=== PATIENT | female | born 1950 | race Caucasian/White ===

== ENCOUNTER 2020-06-15 11:46 | Outpatient (CLI) | payer MEDICARE, SELFPAY ==
--- NOTE | ~2020-06-15 | MM_ITS ---
EXAMINATION: MM screening isidro BI w bobby HISTORY: Screening TECHNIQUE: Craniocaudal and mediolateral oblique 3-D tomosynthesis images were obtained and synthetic 2-D images were generated. CAD analysis was submitted and interpreted. COMPARISON: Comparison to multiple prior studies sequentially, with oldest reviewed study dated 12/2012. BREAST PARENCHYMAL COMPOSITION: There are scattered areas of fibroglandular density. FINDINGS: There is no evidence of suspicious mass, calcification, or architectural distortion to sugg est malignancy in either breast. There has been no suspicious interval change. IMPRESSION: 1. No mammographic evidence of malignancy. 2. Recommend routine screening mammography in one year. BI-RADS Category 1: Negative Reviewed, dictated and finalized at location D.
== END 2020-06-15 11:47 | disposition home or self-care (01) ==
PROVIDERS: PCP Internal Medicine; Visit Provider Internal Medicine
DX: Z12.31 Encounter for screening mammogram for malignant neoplasm of breast (principal)
CPT/HCPCS: 77063; 77067

== ENCOUNTER 2020-09-27 07:35 | Outpatient (CLI) | payer MEDICARE, SELFPAY ==
--- NOTE | ~2020-09-27 | DEXA_ITS ---
Bone Density Report Name: Di Perdomo Age: 69 Sex: Female Ethnicity: White Date of : 1950 Indication: postmenopausal; height loss; Referring Provider: JOHN, NADIYA Cunningham Study: Bone densitometry was performed. Exam Date: September 27, 2020 Accession number: [id number] Bone Density: Region BMD T-score Z-score Classification AP Spine (L1-L4) 1.088 0.4 2.5 Normal Femoral Neck (Left) 0.977 1.2 3.0 Normal Total Hip (Left) 1.131 1.6 3.1 Normal Total Hip Bilateral Avg 1.117 1.5 3.0 Normal Femoral Neck (Right) 0.905 0.5 2.3 Normal Total Hip (Right) 1.101 1.3 2.9 Normal World Health Organization criteria for BMD impression classify patients as: Normal (T-score at or above -1.0), Osteopenia (T-score between -1.0 and -2.5), or Osteoporosis (T-score at or below -2.5). 10-year Fracture Risk: FRAX not reported because: All T-scores for Spine Total, Hip Total, Femoral Neck at or above -1.0 Previous Exams: Region Exam Age BMD T-score BMD Change BMD Change Date g/cm2 vs Baseline vs Previous AP Spine(L1-L4) 09/27/2020 69 1.088 0.4 0.006(0.5%)# 0.006(0.5%)# 05/05/2010 59 1.082 0.3 Total Hip(Left) 09/27/2020 69 1.131 1.6 -0.086(-7.1%)# -0.086(-7.1%)# 05/05/2010 59 1.218 2.3 Total Hip(Right) 09/27/2020 69 1.101 1.3 -0.078(-6.6%)# -0.078(-6.6%)# 05/05/2010 59 1.179 1.9 *Denotes significance at 95% confidence level, LSC for AP Spine = 0.022 g/cm2, LSC for Total Hip = 0.027 g/cm2 Clinical Information Provided by Patient: Patient maximum height was 65 Menopause Age: 38 No regular weight bearing exercise Does not regularly consume dairy products Onset of menses at age 12 Number of children 3 Impression: The patient has normal bone mass. No significant bone loss was observed. Discussion: LOW RISK OF FRACTURE; BONE DENSITY IS WELL ABOVE THE MINIMUM DESIRABLE LEVEL AND ABOVE AVERAGE FOR AGE AND SEX AT ALL SKELETAL SITES TESTED. This person's bone density is above expected limits for age and sex. This is rarely clinically significant, but should be pursued if there are significant musculoskeletal complaints. The patient should follow a healthful lifestyle (good nutrition with adequate calcium and vitamin D, and appropriate weight-bearing exercise). Follow-Up: Consider repeating this study in 5 years or sooner if there is some new clinical indication. Reported by: MORGAN on 09/27/2020 8:00:00 AM.
== END 2020-09-27 07:36 | disposition home or self-care (01) ==
PROVIDERS: PCP Internal Medicine; Visit Provider Internal Medicine
DX: Z13.820 Encounter for screening for osteoporosis (principal); Z78.0 Asymptomatic menopausal state
CPT/HCPCS: 77080

== ENCOUNTER 2021-06-19 10:07 | Outpatient (CLI) | payer MEDICARE, SELFPAY ==
--- NOTE | ~2021-06-19 | MM_ITS ---
EXAMINATION: MM screening isidro BI w bobby HISTORY: Screening TECHNIQUE: Craniocaudal and mediolateral oblique 3-D tomosynthesis images were obtained and synthetic 2-D images were generated. CAD analysis was submitted and interpreted. COMPARISON: No prior mammogram is available for comparison at this institution. BREAST PARENCHYMAL COMPOSITION: There are scattered areas of fibroglandular density. FINDINGS: There is no evidence of suspicious mass, calcification, or architectural distortion to sugg est malignancy in either breast. There has been no suspicious interval change. IMPRESSION: 1. No mammographic evidence of malignancy. 2. Recommend routine screening mammography in one year. BI-RADS Category 1: Negative Reviewed, dictated and finalized at location A.
== END 2021-06-19 10:08 | disposition home or self-care (01) ==
PROVIDERS: PCP Internal Medicine; Visit Provider Internal Medicine
DX: Z12.31 Encounter for screening mammogram for malignant neoplasm of breast (principal)
CPT/HCPCS: 77063; 77067

== ENCOUNTER 2023-08-07 08:25 | Outpatient (CLI) | payer MEDICARE, SELFPAY ==
--- NOTE | ~2023-08-07 | MM_ITS ---
EXAMINATION: MM screening isidro BI w bobby HISTORY: Screening mammogram TECHNIQUE: Craniocaudal and mediolateral oblique 3-D tomosynthesis images were obtained and synthetic 2-D images were generated. CAD analysis was submitted and interpreted. COMPARISON: 06/19/2021, 06/15/2020, 06/05/2019 bilateral screening mammogram examinations BREAST PARENCHYMAL COMPOSITION: There are scattered areas of fibroglandular density. FINDINGS: There is no evidence of suspicious mass, calcification, or architectural distortion to sugg est malignancy in either breast. There has been no suspicious interval change. IMPRESSION: 1. No mammographic evidence of malignancy. 2. Recommend routine screening mammography in one year. BI-RADS Category 1: Negative Reviewed, dictated and finalized at location A.
== END 2023-08-07 08:26 | disposition home or self-care (01) ==
LOC: ANHIMG 08:28
PROVIDERS: PCP Internal Medicine; Visit Provider Internal Medicine
DX: Z12.31 Encounter for screening mammogram for malignant neoplasm of breast (principal)
CPT/HCPCS: 77063; 77067

== ENCOUNTER 2024-08-19 10:18 | Outpatient (CLI) | payer MEDICARE, SELFPAY ==
--- NOTE | ~2024-08-19 | MM_ITS ---
EXAMINATION: MM screening isidro BI w bobby HISTORY: Screening TECHNIQUE: Craniocaudal and mediolateral oblique 3-D tomosynthesis images were obtained and synthetic 2-D images were generated. CAD analysis was submitted and interpreted. COMPARISON: Comparison to multiple prior studies sequentially, with oldest reviewed study dated 04/23. BREAST PARENCHYMAL COMPOSITION: Not dense: There are scattered areas of fibroglandular density. FINDINGS: There is no evidence of suspicious mass, calcification, or architectural distortion to sugg est malignancy in either breast. There has been no suspicious interval change. IMPRESSION: 1. No mammographic evidence of malignancy. 2. Recommend routine screening mammography in one year. BI-RADS Category 1: Negative Reviewed, dictated and finalized at location B.
--- NOTE | ~2024-08-19 | DEXA_ITS ---
Bone Density Report Name: ABHAY JOHN Age: 73 Sex: Female Ethnicity: White Date of : 1950 Indication: postmenopausal; screening for osteoporosis; parental hip fracture; Referring Provider: NIEVES*, NADIYA Cunningham Study: Bone densitometry was performed. Exam Date: August 19, 2024 Accession number: [id number] Bone Density: Region BMD T-score Z-score Classification AP Spine(L1-L4) 1.082 0.3 2.7 Normal Femoral Neck (Left) 0.891 0.4 2.4 Normal Total Hip (Left) 1.104 1.3 3.1 Normal Femoral Neck (Right) 0.873 0.2 2.3 Normal Total Hip (Right) 1.072 1.1 2.8 Normal Total Hip Mean 1.088 1.2 3.0 Normal World Health Organization criteria for BMD impression classify patients as: Normal (T-score at or above -1.0), Osteopenia (T-score between -1.0 and -2.5), or Osteoporosis (T-score at or below -2.5). 10-year Fracture Risk: FRAX not reported because: All T-scores for Spine Total, Hip Total, Femoral Neck at or above -1.0 Previous Exams: Region Exam Age BMD T-score BMD Change BMD Change Date g/cm2 vs Baseline vs Previous AP Spine (L1-L4) 08/19/2024 73 1.082 0.3 -0.005 (-0.5%) -0.005 (-0.5%) 09/27/2020 69 1.088 0.4 Total Hip(Left) 08/19/2024 73 1.104 1.3 -0.027 (-2.4%) -0.027 (-2.4%) 09/27/2020 69 1.131 1.6 Total Hip(Right) 08/19/2024 73 1.072 1.1 -0.029 (-2.6%) -0.029 (-2.6%) 09/27/2020 69 1.101 1.3 *Denotes significance at 95% confidence level, LSC for AP Spine = 0.022 g/cm2, LSC for Total Hip = 0.027 g/cm2 # Denotes dissimilar scan types or analysis methods Clinical Information Provided by Patient: Parent has had a hip fracture Patient maximum height was 63.0 Menopause Age: 38 No regular weight bearing exercise Does not regularly consume dairy products Drinks caffeinated beverages Onset of menses at age 13 Number of children 3 Impression: The patient has normal bone mass. The patient has risk factors, including: parental hip fracture. No significant bone loss was observed. Discussion: LOW RISK OF FRACTURE; BONE DENSITY IS WELL ABOVE THE MINIMUM DESIRABLE LEVEL AND ABOVE AVERAGE FOR AGE AND SEX AT ALL SKELETAL SITES TESTED. This person's bone density is above expected limits for age and sex. This is rarely clinically significant, but should be pursued if there are significant musculoskeletal complaints. The patient should follow a healthful lifestyle (good nutrition with adequate calcium and vitamin
== END 2024-08-19 10:19 | disposition home or self-care (01) ==
PROVIDERS: PCP Internal Medicine; Visit Provider Internal Medicine
DX: Z12.31 Encounter for screening mammogram for malignant neoplasm of breast (principal); M81.0 Age-related osteoporosis without current pathological fracture; Z13.820 Encounter for screening for osteoporosis
CPT/HCPCS: 77063; 77067; 77080

== ENCOUNTER 2025-05-26 08:18 | Outpatient (CLI) | payer MEDICARE, SELFPAY ==
--- NOTE | ~2025-05-26 | US_ITS ---
US renal BI 05/26/2025 09:54 Procedure: Realtime transabdominal ultrasound of the kidneys and bladder. Indication: Chronic kidney disease Comparison: No prior studies for comparison. Findings: There is a right renal cyst laterally measuring 5.4 cm. There is mild left renal caliectasi s. There is increased cortical echotexture consistent with chronic renal disease. The right kidney me asures 9.5 cm and left kidney measures 9 cm. Bladder within normal limits. Impression: 1: Mild left renal caliectasis. 2: Right renal cyst measuring 5.4 cm Reviewed, dictated and finalized at location B. Impression: 1: Mild left renal caliectasis. 2: Right renal cyst measuring 5.4 cm
--- OUTSIDE RECORDS SUMMARY | 2025-05-26 08:22 | XMS_ITS | Data Portability ---
Author Organization [facility], Main Office Address [address] [place] [address] Assessment No assessment recorded. Plan of Treatment Reminders Order Date Submit Date Provider Last Modified By Organization Details Last Modified Time Details Appointments None recorded. Lab uric acid, serum or plasma 2024 025 [email or web address] [facility], [address], [place], [address], 5 10:24:30 lipid panel, serum 2024 025 [email or web address] [facility], [address], [place], [address], 5 10:24:29 CMP, serum or plasma 2024 025 [email or web address] [facility], [address], [place], [address], 5 10:24:29 TSH, ultra-sens itive, serum 2024 025 [email or web address] [facility], [address], [place], [address], 5 10:24:29 unlisted lab - T4, free 2024 025 [email or web address] [facility], [address], [place], [address], 5 10:24:29 HbA1c (hemoglobi n A1c), blood 2024 025 [facility], [address], [place], [address], 5 10:24:29 microalbum in, urine 2024 025 [email or web address] [facility], [address], [place], [address], 5 10:24:30 CBC w/ auto diff 2024 025 [email or web address] [facility], [address], [place], [address], 5 10:24:28 uric acid, serum or plasma 2023 024 [email or web address] [facility], [address], [place], [address], 4 16:56:27 lipid panel, serum 2023 024 [email or web address] [facility], [address], [place], [address], 4 16:56:26 CMP, serum or plasma 2023 024 [email or web address] [facility], [address], [place], [address], 4 16:56:26 TSH, ultra-sens itive, serum 2023 024 [email or web address] [facility], [address], [place], [address], 4 16:56:26 unlisted lab - T4, free 2023 024 [email or web address] [facility], [address], [place], [address], 4 16:56:26 HbA1c (hemoglobi n A1c), blood 2023 024 [email or web address] [facility], [address], [place], [address], 4 16:56:26 microalbum in, urine 2023 024 [facility], [address], [place], [address], 4 16:56:26 CBC w/ auto diff 2023 024 [email or web address] [facility], [address], [place], [address], 4 16:56:25 uric acid, serum or plasma 2023 024 [email or web address] [facility], [address], [place], [address], 4 12:54:52 lipid panel, serum 2023 024 [email or web address] [facility], [address], [place], [address], 4 12:54:52 CMP, serum or plasma 2023 024 [email or web address] [facility], [address], [place], [address], 4 12:54:52 TSH, ultra-sens itive, serum 2023 024 [email or web address] [facility], [address], [place], [address], 4 12:54:52 unlisted lab - T4, free 2023 024 [email or web address] [facility], [address], [place], [address], 4 12:54:52 HbA1c (hemoglobi n A1c), blood 2023 024 [email or web address] [facility], [address], [place], [address], 4 12:54:52 CBC w/ auto diff 2023 024 [email or web address] [facility], [address], [place], [address], 4 12:54:51 HbA1c (hemoglobi n A1c), blood 2022 023 [facility], [address], [place], [address], 3 16:33:54 microalbum in/creatin ine, mass ratio, urine 2022 023 [email or web address] [facility], [address], [place], [address], 3 16:33:55 lipid panel, serum 2022 023 [email or web address] [facility], [address], [place], [address], 3 16:33:54 CMP, serum or plasma 2022 023 [email or web address] [facility], [address], [place], [address], 3 16:33:54 CBC w/ auto diff 2022 023 [facility], [address], [place], [address], 3 16:33:54 unlisted lab - T4, free 2022 023 [email or web address] [facility], [address], [place], [address], 16:33:54 TSH, ultra-sens itive, serum 2022 023 [facility], [address], [place], [address], 16:33:54 Referral None recorded. Procedures None recorded. Surgeries None recorded. Imaging None recorded. Medication Orders None recorded. Patient TargetsNo targets recorded. Patient Instructions Encounter Date Encounter Id Patient Instructions Last Modified By Organization Details Last Modified Time 02/06/2023 [id number] Follow-up hypertension -hyperlipidemia- type 2 diabetes-obesity. Clinically stable in no acute distress at this time. Doing quite well. Needs have blood work performed in the form of CBC, CMP, lipid, thyroid, hemoglobin A1c and albumin. Will check on the most recent mammogram. Is also due for bone density scan is up-to-date on colonoscopy. Is up-to-date on immunizations. Will continue on current Rx recheck back in six months [email or web address] Not available 02/06/2023 15:45:18 07/31/2023 [id number] Follow-up hypertension -hyperlipidemia- type 2 diabetes doing well. No need for any further testing at this time. Recent hemoglobin A1c was 7.3. Recent cholesterol panel showed cholesterol 153 HDL of 41 LDL of 77. Will continue on current medications recheck back in six months. Portions of the record may have been created with voice recognition software. Occasional wrong-word or [id number]-f-[id number] substitutions may have occurred due to the inherent limitations of voice recognition software. Read the chart carefully and recognize, using context, where substitutions have occurred. Next Appt: 6 Months Approximate Date: 01/27/2024 [email or web address] Not available 07/31/2023 15:03:21 01/29/2024 [id number] HTN, Cholesterol , DM, Gout obesity class I. Stable. Check blood work and follow up in six months. Needs a bone density scan. DEXA scan at [facility] Next Appt: 4 Months Approximate Date: 05/28/2024 Portions of the record may have been created with voice recognition software. Occasional wrong-word or kjdfv-v-ilcx substitutions may have occurred due to the inherent limitations of voice recognition software. Read the chart carefully and recognize, using context, where substitutions have occurred. [email or web address] Not available 01/29/2024 14:53:22 08/12/2024 [id number] Follow-up for hypertension, hyperlipidemia, type 2 diabetes gout and obesity class one. All clinically stable. Check blood work consisting of CBC, CMP, lipid, thyroid, hemoglobin A1c, microalbumin and uric acid. Continue on current Rx follow-up in six months. Follow Up: 6 Months Approximate Date: 02/08/2025 Portions of the record may have been created with voice recognition software. Occasional wrong-word or xupia-d-wrvs substitutions may have occurred due to the inherent limitations of voice recognition software. Read the chart carefully and recognize, using context, where substitutions have occurred. [email or web address] Not available 08/12/2024 14:55:10 02/10/2025 [id number] Follow-up hypertension, hyperlipidemia, type 2 diabetes, gout and obesity class one. Clinically stable. Check blood work consisting of CBC, CMP, lipid, thyroid, hemoglobin A1c and microalbumin. Will set up with Ophthalmology for possible evaluation for early cataract. Additional Orders - Directives - Recommendations 1. Ophthalmology consult for decrease in visual acuity possible early cataracts and history of diabetes Follow Up: 6 Months Approximate Date: 08/09/2025 Portions of record are template driven. When necessary additional context will be provided. Additionally some portions have been created with voice recognition software. Occasional wrong-word or iokoe-n-gjwf substitutions may have occurred due to the inherent limitations of voice recognition software. Read the chart carefully and recognize, using context, where substitutions may have occurred. Created: Hal Beal M.D. 02.10.2025 02:08 PM Not available 02/10/2025 15:08:15 Reason for Referral None Reported. Results Created Date Observation Date Name Description Value Unit Range Abnormal Flag Note LastModifiedBy Organization Detail LastModifiedTime 02/04/20 24 02/04/2024 COLOG UARD cologuard result reportable NEGATI VE negati ve normal NEGAT MIGUEL TEST RESUL T. A negat miguel Colog uard resul t indic ates a low likel ihood that a color ectal cance r (CRC) or advan angie adeno ma (rupinder omato us polyp s with more advan angie pre-m align ant featu res) is prese nt. The [facility] that a perso n with a negat miguel Colog uard test has a color ectal cance r is less than 1 in 1500 (nega tive predi ctive value >99.9 %) or has an advan angie adeno ma is less than 5.3% (nega tive predi ctive value 94.7% ). These data are based on a prosp ectiv e cross -sect ional study of ,00 0 indiv idual s at [place] [facility] risk for color ectal cance r who were scree rolando with both Colog uard and colon oscop y. (Peter Cunningham et al, N Engl J Med 2014; 370(1 4):12 86-12 97) The olive l value (refe rence range ) for this assay is negat miguel. COLOG UARD RE-SC REEJUSTYNA ANDREA RECOM MENDA TION: Perio dic color ectal cance r scree teresa is an impor tant part of preve ntive healt hcare for asymp tomat ic indiv idual s at [place] risk for color ectal cance r. Follo wing a negat miguel Colog uard resul t, the Ameri can Cance r Socie ty and U.S. Multi -Soci ety Task Force scree teresa guide lines recom mend a Colog uard re-sc brook andrea inter olayinka of 3 years . Refer ences : Ameri can Cance r Socie ty Guide line for Color ectal Cance r Scree teresa: https ://ww w.can cer.o rg/ca ncer/ colon -rect al-ca ncer/ detec tion- diagn osis- stagi ng/ac s-rec ommen datio ns.ht ml.; Dwayne RANDOLPH, Dena CALL, Huang AshK, Color ectal Cance r Scree teresa: Recom menda tions for Physi cians and Patie nts from the U.S. Multi -Soci ety Task Force on Color ectal Cance r Scree teresa , Am J Zaheer pereznte rolog y 2017; 112:1 016-1 030. TEST DESCR IPTIO N: [place] site algor ithmi c ana sis of stool DNA-b arun renee with hemog lobin immun oassa y. Quant itati ve value s of indiv idual bioma rkers are not repor table and are not assoc iated with indiv idual bioma rker resul t refer ence range s. Colog uard is inten ded for color ectal cance r scree teresa of adult s of eithe r sex, 45 years or older , who are at [facility] for color ectal cance r (CRC) . Colog uard has been appro huan for use by the U.S. FDA. The perfo rmanc e of Colog uard was estab lishe d in a cross secti onal study of [facility] adult s aged 50-84 . Colog uard perfo rmanc e in patie nts ages 45 to 49 years was estim ated by sub-g roup ana sis of near- age group s. Colon oscop ies perfo rmed for a posit miguel resul t may find as the most clini kalie signi kelsi guidry leskevin n: color ectal cance r [4.0% ], advan angie adeno ma (incl uding sessi le el margo polyp s great er than or equal to 1cm diame ter) [20%] or non- advan angie adeno ma [31%] ; or no color ectal neopl jamie [45%] . These estim ates are deriv ed from a prosp ectiv e cross -sect ional scree teresa study of 10,00 0 indiv idual s at [facility] risk for color ectal cance r who were scree rolando with both Colog uard and colon oscop y. (Peter Herbert al, N Engl J Med 2014; 370(1 4):12 86-12 97.) Colog uard may produ ce a false negat miguel or false posit miguel resul t (no color ectal cance r or preca ncero us polyp prese nt at colon oscop y follo w up). A negat miguel Colog uard test resul t does not guara ntee the absen ce of CRC or advan angie adeno ma (pre- cance r). The curre nt Colog uard scree teresa inter olayinka is every 3 years . (Amer ican Cance r Socie ty and U.S. Multi -Soci ety Task Force ). Colog uard perfo rmanc e data in a ,00 0 patie nt pivot al study using colon oscop y as the refer ence metho d can be acces sed at the follo wing locat ion: www.e xactl abs.c om/re sults . Addit ional descr iptio n of the Colog uard test proce ss, warni ngs and preca ution s can be found at www.c ologu umberto.c om. Not Available [facility] (Cologuard Orders Only) [address], [place], [address], 02/07/2024 19:26:17 08/07/20 23 08/07/2023 MAMMO , scree teresa, bilat eral No observ ation record ed. [address], [address], 08/07/2023 10:56:10 08/19/2008/19/2024 MAMMO , scree teresa, bilat eral No observ ation record ed. [address] [address], [place], [address], 08/19/2024 13:50:37 08/20/2008/19/2024 DEXA No observ ation record ed. [id number] Not Available 2023 07:00:10 08/21/2008/19/2024 bone densi ty No observ ation record ed. [address] [address], [place], [address], 08/22/2024 08:45:30 09/03/2008/19/2024 DEXA No observ ation record ed. [email or web address] Not Available 2023 14:13:18 Result Notes None recorded. Problems Name Problem SNOMED Code Status Onset Date Resolution Date Notes Provider Name and Address Organization Details Recorded Time Renewal of prescripti on Active 2021 Not Available [facility] 3 12:40:06 Neurosis 872910239 Active Not Available [facility] 3 12:40:06 Benign essential hypertensi on 9288539 Completed Not Available [facility] 3 05:59:04 Gastroesop hageal reflux disease 505954533 Active Not Available [facility] 3 12:40:06 Thoracic herpes zoster infection 900854784 Active 2016 Not Available [facility] 3 12:40:06 Pure hyperchole sterolemia 592078011 Active Not Available [facility] 3 12:40:06 Tachycardi a 6215092 Active Not Available [facility] 3 12:40:06 Vitamin D deficiency 54042455 Active 2021 Not Available [facility] 3 12:40:06 Depressive disorder 79412637 Active Not Available [facility] 3 12:40:06 Vertigo 228947772 Active Not Available [facility] 3 12:40:06 Type 2 diabetes mellitus 16643175 Active Not Available [facility] 3 12:40:06 Essential hypertensi on 40379903 Active 2017 Not Available [facility] 3 12:40:06 Palpitatio ns 82983985 Active Not Available [facility] 3 12:40:07 COVID-19 511381379 Active 2021 Not Available [facility] 3 12:40:07 Obesity 221058873 Active 2022 Not Available [facility] 3 12:40:06 Type 2 diabetes mellitus without complicati on 225312494 Active 2022 Not Available [facility] 3 12:40:06 Hyperlipid emia 17827138 Active 2022 Xiao Castle CMA null, [place] [facility] 3 15:40:19 Gout 63090640 Active 2023 Hal Beal MD [address] [facility], [address] [address], [place], [address] , [place] [facility] 4 14:48:02 Senile osteoporos is 06241583 Active 2023 Connie Greene null, [place] [facility] 4 15:21:34 Anxiety 33104373 Active 2023 Xiao Castle CMA null, [place] [facility] 4 15:50:26 Bilateral cataracts 59176330 Active 2024 Connie Greene null, [place] [facility] 5 12:22:19 Chronic renal failure 71951824 Active 2024 Xiao Castle CMA null, [place] [facility] 5 15:46:13 Chronic kidney disease stage 3 336210291 Active 2024 Xiao Castle CMA null, [place] [facility] 5 15:58:31 Problem Notes None recorded. Procedures Surgical History Date Name Laterality Status Provider Name and Address Organization Details Recorded Time 07/31/20 21 Date of Last Pap Smear completed Not Available [facility] 01/09/2023 05:54:10 09/27/20 20 Most Recent Bone Density completed Not Available [facility] 01/09/2023 05:54:11 06/15/20 20 Most Recent Mammogram completed Not Available [facility] 01/09/2023 05:54:11 07/15/20 14 Date of Last Colonoscopy completed Not Available [facility] 01/09/2023 05:54:11 11/11/18 81 section completed Not Available [facility] 01/09/2023 05:54:12 Imaging Results None recorded. Procedure Notes None recorded. Medical Equipment None Reported. Allergies Allergen ID Allergen Name Allergen Category Reaction Reaction Severity Criticality Documentation Date Start Date Code Code System Note Provider Name and Address Organization Details Recorded Time 34502 Product containin g penicilli n (product) medicatio n rash Not available Not available 01/09/2023 45557 8001 SNOMED Not Available [facility] 3 06:04:12 93243 Levaquin medicatio n rash Not available Not available 01/09/2023 75347 2 RxNorm vomit ting Not Available [facility] 3 06:04:12 11246 Keflex medicatio n rash Not available Not available 01/09/2023 99724 7 RxNorm Not Available [facility] 3 06:04:13 55282 hydrochlo rothiazid e medicatio n itching Not available Not available 01/09/2023 5487 RxNorm Not Available [facility] 3 06:04:13 49685 codeine medicatio n nausea Not available Not available 01/09/2023 2670 RxNorm Not Available [facility] 3 06:04:13 71765 Biaxin medicatio n other Not available Not available 01/09/2023 41832 9 RxNorm hallu cinat ions Not Available [facility] 3 06:04:13 73978 Avelox medicatio n rash Not available Not available 01/09/2023 02518 6 RxNorm nause a Not Available [facility] 3 06:04:13 86401 allopurin ol medicatio n itching Not available low 02/17/2024 519 RxNorm Hal Beal MD [address] [facility], [facility], [place], [address] [place] [address] - [facility] [employer] [facility] 4 11:17:57 Medications Name Sig Start Date Stop Date Status Note LastModified by Organization Details LastModified Time atorvastati n 40 mg tablet TAKE 1 TABLET DAILY active Not Available Not Available No t Available metformin 500 mg tablet TAKE ONE TABLET BY MOUTH THREE TIMES DAILY 02/03 completed Not Available Not Available Not Available doxycycline hyclate 100 mg capsule Take 1 capsule twice a day by oral route. active Not Available Not Available No t Available atorvastati n 20 mg tablet Take 1 tablet every day by oral route. 08/18 completed Not Available Not Available Not Available naproxen 375 mg tablet Take 1 tablet twice a day by oral route. active Not Available Not Available No t Available clindamycin HCl 300 mg capsule Take 1 capsule every 6 hours by oral route. 01/28 completed Not Available Not Available Not Available benzonatate 200 mg capsule Take 1 capsule 3 times a day by oral route. 07/01 completed Not Available Not Available Not Available Lotrisone 1 %-0.05 % topical cream Apply by topical route twice daily 12/23 completed Not Available Not Available Not Available lisinopril 20 mg tablet Take 1 tablet twice a day by oral route. 10/13 completed Not Available Not Available Not Available metoprolol succinate ER 100 mg tablet,exte nded release 24 hr TAKE 1 TABLET DAILY 2024 active Not Available Not Available Not Avai lable clindamycin HCl 150 mg capsule TAKE 1 CAPSULE BY MOUTH 4 TIMES DAILY 02/10 completed Not Available Not Available Not Available Ultram 50 mg tablet Take 1 tablet(s) EVERY 6 HOURS by oral route for pain 12/23 completed Not Available Not Available Not Available Nexium 40 mg capsule,del ayed release Take 1 capsule every day by oral route. 2013 active Not Available Not Available Not Avai lable chlorthalid one 25 mg tablet TAKE 1 TABLET DAILY active Not Available Not Available No t Available allopurinol 100 mg tablet take one tablet daily for a week then one tablet twice a day for a week then patient needs to call office for a new prescript ion 02/10 completed Not Available Not Available Not Available triamcinolo ne acetonide 0.1 % topical cream APPLY A THIN LAYER TO THE AFFECTED AREA(S) TOPICALLY TWICE DAILY. active Not Available Not Available No t Available glimepiride 2 mg tablet TAKE 1 TABLET DAILY active Not Available Not Available No t Available alprazolam 0.5 mg tablet TAKE 1 TABLET (0.5 MG) BY ORAL ROUTE 1 HOUR BEFORE PROCEDURE active Not Available Not Available No t Available lancets FREEDOM LITE LANCETS TEST ONCE DAILY 05/21 completed Not Available Not Available Not Available baclofen 10 mg tablet Take 1 tablet 4 times a day by oral route. active Not Available Not Available No t Available benzonatate 100 mg capsule Take 1 capsule 3 times a day by oral route. active Not Available Not Available No t Available metformin 1,000 mg tablet TAKE 1 TABLET BY MOUTH TWICE DAILY 02/21/ 2025 active Not Available Not Available Not Avai lable Valtrex 1 gram tablet Take 1 tablet 3 times a day by oral route. 12/23 completed Not Available Not Available Not Available allopurinol 300 mg tablet Take 1 tablet every day by oral route. active Not Available Not Available No t Available hydrochloro thiazide 25 mg tablet Take 1 tablet every day by oral route. 07/01 completed Not Available Not Available Not Available ergocalcife rol (vitamin D2) 1,250 mcg (50,000 unit) capsule TAKE 1 CAPSULE BY MOUTH ONCE A WEEK active Not Available Not Available No t Available ibuprofen 600 mg tablet TAKE 1 TABLET BY MOUTH EVERY 12 HOURS NEEDED FOR PAIN active Not Available Not Available No t Available methylpredn isolone 4 mg tablets in a dose pack USE DIRECTED PER PKG INSERT 08/08 completed Not Available Not Available Not Available losartan 100 mg tablet TAKE 1 TABLET DAILY active Not Available Not Available No t Available naproxen 500 mg tablet Take 1 tablet twice a day by oral route. active Not Available Not Available No t Available Suprep Bowel Prep Kit 17.5 gram-3.13 gram-1.6 gram oral solution active Not Available Not Available Not Available OneTouch Verio test strips TEST BLOOD SUGARS ONCE DAILY. active Not Available Not Available No t Available lancets 28 gauge one touch reflex lancets to test blood sugars once daily active Not Available Not Available No t Available OneTouch Delica Plus Lancet 33 gauge USE TO TEST BLOOD SUGAR ONCE DAILY active Not Available Not Available No t Available Paxlovid 300 mg (150 mg x 2)-100 mg tablets in a dose pack TAKE DIRECTED ON PACKAGE FOR 5 DAYS 02/06 completed Not Available Not Available Not Available Vitals Date Recorded Body height Body mass index (BMI) Body weight Heart rate Body temperature Oxygen saturation Oxygen saturation in Arterial blood by Pulse oximetry Systolic And Diastolic Provider Name and Address Organization Details Last Updated DateTime 4 161.29 cm 31.6 kg/m2 68903.2 2 g 62 /min 97 [degF] 97 % 97 % 138/80 mm[Hg] Leticia Whelan Singh [facility] 4 14:40:00 Date Recorded Body height Body mass index (BMI) Body weight Body temperature Heart rate Oxygen saturation Oxygen saturation in Arterial blood by Pulse oximetry Systolic And Diastolic Provider Name and Address Organization Details Last Updated DateTime 3 161.29 cm 33.1 kg/m2 10727.5 5 g 96.8 [degF] 60 /min 97 % 97 % 130/80 mm[Hg] Jessica Pan MA [facility] [employer] [facility] 3 15:34:30 Date Recorded Body height Body mass index (BMI) Body weight Heart rate Body temperature Oxygen saturation Oxygen saturation in Arterial blood by Pulse oximetry Systolic And Diastolic Provider Name and Address Organization Details Last Updated DateTime 5 161.29 cm 31.4 kg/m2 88531.6 3 g 66 /min 97 [degF] 97 % 97 % 122/74 mm[Hg] [facility] [employer] [facility] 5 14:35:19 Date Recorded Body height Body mass index (BMI) Body weight Heart rate Body temperature Oxygen saturation Oxygen saturation in Arterial blood by Pulse oximetry Systolic And Diastolic Provider Name and Address Organization Details Last Updated DateTime 3 161.29 cm 33.1 kg/m2 97904.5 5 g 65 /min 97 [degF] 95 % 95 % 124/82 mm[Hg] Leticia [facility] [employer] [facility] 3 14:45:33 Date Recorded Body height Body mass index (BMI) Body weight Heart rate Body temperature Oxygen saturation Oxygen saturation in Arterial blood by Pulse oximetry Systolic And Diastolic Provider Name and Address Organization Details Last Updated DateTime 4 161.29 cm 32.1 kg/m2 23654 g 60 /min 97 [degF] 97 % 97 % 136/90 mm[Hg] ZHANG Berg [facility] [employer] [facility] 4 14:41:39 Social History Question Answer Notes LastModified by Organizat ion Details LastModified Time Tobacco Smoking Status Never Smoker Not Available [facility] 01/09/2023 05:53:48 Do You Have An Advance Directive? No MIGRATION.[id number] Information not available 01/09/2023 Are You Blind Or Do You Have Difficulty Seeing? No MIGRATION.[id number] 9120 Information not available 01/09/2023 What Is Your Level Of Caffeine Consumption? Occasional MIGRATION.[id number] 7373 Information not available 01/09/2023 In The 14 Days Before Symptom Onset, Have You Had Close Contact With A Laboratory-confir med COVID-19 While That Case Was Ill? No MIGRATION.[id number] 1650 Information not available 01/09/2023 In The 14 Days Before Symptom Onset, Have You Had Close Contact With A Person Who Is Under Investigation For COVID-19 While That Person Was Ill? No MIGRATION.[id number] 3074 Information not available 01/09/2023 Are You Deaf Or Do You Have Serious Difficulty Hearing? No MIGRATION.777810 2943 Information not available 01/09/2023 What Type Of Diet Are You Following? REGULAR MIGRATION.635384 0470 Information not available 01/09/2023 Have There Been Any Changes To Your Family Or Social Situation? No MIGRATION.606654 1655 Information not available 01/09/2023 What Is The Fluoride Status Of Your Home? Unknown MIGRATION.683408 1198 Information not available 01/09/2023 Are There Any Guns Present In Your Home? No MIGRATION.156563 2826 Information not available 01/09/2023 Do You Use Insect Repellent Routinely? No MIGRATION.047328 4025 Information not available 01/09/2023 Where [facility] You Live? [facility] MIGRATION.[id number] 1659 Information not available 01/09/2023 Do You Have A Medical Power Of Drug Abuse Worker? No MIGRATION.776449 1527 Information not available 01/09/2023 Do You Have Any Pets? Yes MIGRATION.212168 1367 Information not available 01/09/2023 What Is Your Relationship Status? MIGRATION.894344 6141 Information not available 01/09/2023 Do You Use Your Seat Belt Or Car Seat Routinely? Yes MIGRATION.412024 0376 Information not available 01/09/2023 Do You Have Smoke And Carbon Monoxide Detectors In Your Home? No MIGRATION.932788 5882 Information not available 01/09/2023 Are You Passively Exposed To Smoke? No MIGRATION.377453 0979 Information not available 01/09/2023 Do You Use Sunscreen Routinely? No MIGRATION.747501 4241 Information not available 01/09/2023 Have You Recently Traveled Abroad? No MIGRATION.156178 6486 Information not available 01/09/2023 Do You Have Difficulty Walking Or Climbing Stairs? No MIGRATION.161969 8403 Information not available 01/09/2023 Do You Have Any Dietary Restrictions? No MIGRATION.980378 8984 Information not available 01/09/2023 Sex: Female Functional Status Question Answer Note LastModified by Organizat ion Details LastModified Time Do you use any illicit or recreational drugs? No MIGRATION.461715 4685 Information not available 01/09/2023 What is your level of alcohol consumption? None MIGRATION.557184 3523 Information not available 01/09/2023 Do you have transportation difficulties? No MIGRATION.138275 8375 Information not available 01/09/2023 Are you able to walk? YESWOREST MIGRATION.049548 8072 Information not available 01/09/2023 Do you have difficulty doing errands alone? No MIGRATION.807545 7737 Information not available 01/09/2023 Are you able to care for yourself? 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 No MIGRATION.578140 9740 Information not available 01/09/2023 What is your exercise level? Occasional MIGRATION.032234 4586 Information not available 01/09/2023 Mental Status Question Answer Note LastModified by Organizat ion Details LastModified Time Do you have difficulty concentrating, remembering or making decisions? No MIGRATION.[id number] 6 Information not available 01/09/2023 Family History Nothing Reported Notes:Mother 81 yea rs old HTN and CVA Father 81 years old CA lung 2 Brothers 1 living with CAD and CABG the other from DM, PVD, and CAD 2 Sisters on living with renal cell cancer the other DM and CRF Medical History Condition Response NERVE DISEASE N BLINDNESS N RHEUMATIC FEVER N KIDNEY STONES N BLADDER PROBLEMS N OTHER # 1 N POLIO N LUNG DISEASE/DISORDER N RADIATION / CHEMOTHERAPY N COPD N Other # 2 N BLOOD DISEASES N SURGERY N EAR OR HEARING PROBLEMS N MUMPS N BOWEL PROBLEMS N DEPRESSION (INCLUDING POST ) N STROKE/TIA N ULCERS N BENIGN PROSTATIC HYPERPLASIA N MEASLES N MYOCARDIAL INFARCTION N OBESITY N GERD/NAUSEA Y ANEURYSM N URINARY/BLADDER/KIDNEY PROBLEMS N INPATIENT PSYCH CARE Y CORONARY ARTERY DISEASE (CAD) N ADDICTION CONCERNS N ENDOMETRIOSIS N Impotence N USE OF BLOOD THINNERS N SKIN PROBLEMS N GASTROINTESTINAL DISORDER N PERIPHERAL VASCULAR DISEASE N MUSCLE,JOINT OR BONE PROBLEMS N GASTROINTESTINAL BLEEDING N BLOOD CLOTS N ASTHMA N CATARACTS N ERECTILE DYSFUNCTION N VARICOSITIES N GI PROBLEMS N Low Testosterone N INFERTILITY N AIDS/HIV N LIVER DISEASE N MALE HYPOGONADISM N HYPERTENSION Y Deficiency N ANXIETY DISORDER N BLOOD TRANSFUSION N ANEMIA/BLOOD DISORDER N CHRONIC EAR INFECTIONS N BRONCHITIS N TUBERCULOSIS N GLAUCOMA N FOOT PROBLEM N DIVERTICULITIS N SLEEP APNEA N CHICKENPOX N INFECTIOUS DISEASE N HEART ARRHYTHMIA N PROSTATE N INSOMNIA N HIGH CHOLESTEROL / HYPERLIPIDEMIA Y HYPERTHYROIDISM N EYE PROBLEMS N NEUROLOGICAL PROBLEMS N EDEMA N CHRONIC PAIN SYNDROME N HYPOTHYROIDISM N CAROTID BLOCKAGE N CONSTIPATION N BACK / NECK PROBLEMS N HAVE YOU BEEN HOSPITALIZED OR SEEN IN [facility] IN THE PAST YEAR ? N ATHEROSCLEROSIS N BREAST PROBLEMS N DIALYSIS N ECZEMA N OSTEOPOROSIS N ARTHRITIS N NO SIGNIFICANT PAST MEDICAL HISTORY N APPENDICITIS N DIABETES, TYPE Y BAD TEETH N ENT N HEARTBURN / REFLUX N AUTISM SPECTRUM DISORDER (ASD) N HEPATITIS / LIVER DISEASE N PULMONARY DISEASE N GOUT N SLEEP DISORDER N ALZHEIMER'S DISEASE N Brain Problems N HERPES Y DEMENTIA N HEADACHES/MIGRAINES N SEIZURES/EPILEPSY N VASCULAR DISEASE N PACEMAKER N Blood Disorder N DIZZINESS N HEART DISEASE/HEART PROBLEMS N KIDNEY DISEASE N MULTIPLE SCLEROSIS N CARDIAC ARRHYTHMIA Y CANCER: SPECIFY N ANESTHESIA COMPLICATIONS N ATRIAL FIBRILLATION N Gall Stones N PULMONARY EMBOLISM N AUTOIMMUNE DISEASE N Gynecological History Statement/Question Response Abnormal Pap N Date of Last Mammogram 06/19/2021 Date of Last Colonoscopy 07/15/2014 Most Recent Bone Density 09/27/2020 Date of Last Pap 07/13/2021 Date of Last Pap Smear 07/31/2021 Current Control Method Menopause Most Recent Mammogram 06/15/2020 Obstetrics History GPAL:G 3 P 3 0 0 3 Type Value Full Term 3 Living 3 Total 3 Immunizations Vaccine Type Date Status Note Provider Nam e and Address Organization Details Recorded Time Influenza, split virus, trivalent, preservative 3 completed Not Available [facility] 08/12/2023 12:40:07 SARS-COV-2 (COVID-19) vaccine, UNSPECIFIED 2 completed Not Available [facility] 08/12/2023 12:40:07 COVID-19, mRNA, LNP-S, PF, 100 mcg/0.5mL dose or 50 mcg/0.25mL dose 1 completed Not Available [facility] 08/12/2023 12:40:07 SARS-COV-2 (COVID-19) vaccine, UNSPECIFIED 1 completed Not Available [facility] 08/12/2023 12:40:07 SARS-COV-2 (COVID-19) vaccine, UNSPECIFIED 1 completed Not Available [facility] 08/12/2023 12:40:07 Influenza, split virus, trivalent, preservative 5 completed Not Available [facility] 08/12/2023 12:40:07 Influenza, split virus, trivalent, preservative 4 completed Not Available [facility] 08/12/2023 12:40:07 Influenza, high-dose, quadrivalent, PF 1 completed Not Available [facility] 08/12/2023 12:40:07 Influenza, high-dose, quadrivalent, PF 0 completed Not Available [facility] 08/12/2023 12:40:07 Influenza, high-dose, trivalent, PF 9 completed Not Available [facility] 08/12/2023 12:40:07 Influenza, high-dose, trivalent, PF 8 completed Not Available [facility] 08/12/2023 12:40:07 pneumococcal polysaccharide PPV23 8 completed Not Available [facility] 08/12/2023 12:40:07 Influenza, high-dose, trivalent, PF 7 completed Not Available [facility] 08/12/2023 12:40:07 Influenza, split virus, quadrivalent, preservative 5 completed Not Available [facility] 08/12/2023 12:40:07 Pneumococcal conjugate PCV 13 5 completed Not Available [facility] 08/12/2023 12:40:07 Past Encounters Encounter ID Performer Location Encounter Start Date Encounter Closed Date Diagnosis/Indication Diagnosis SNOMED-CT Code Diagnosis ICD10 Code Diagnosis Note [id number] [facility] [place] [facility] [place] [address] [address] 01/23/2021 00:00:00 01/23/2021 16:00:53 [id number] Hal Beal MD [facility] Internal Med [facility] [place] [address] [address] 07/24/2021 00:00:00 07/24/2021 15:49:48 [id number] [facility]_[place] _ATHENA_M IGRATION_ DEFAULT_1 _1 , 07/31/2021 00:00:00 07/31/2021 12:13:45 [id number] Hal Beal MD [facility] [address] [facility] [place] [address] 10/24/2021 00:00:00 10/24/2021 15:41:14 [id number] Hal Beal MD [facility] Internal Med [facility] [place] [address] [address] 01/29/2022 00:00:00 01/29/2022 16:12:50 [id number] Hal Beal MD [facility] Internal Med [facility] [place] [address] [address] 08/08/2022 00:00:00 08/08/2022 15:15:12 [id number] Hal Beal MD [facility] Internal Med [place] [address] [address] 02/06/2023 15:19:59 02/06/2023 17:51:59 Essential hypertension 19529901 I10 Pure hypercholesterolemia 534704137 E78.00 Type 2 timmy betes mellitus 03114470 E11.9 Obesity 759125954 E66.9 [id number] Hal Beal MD S[facility] Internal Med [address] [address] 07/31/2023 14:29:51 07/31/2023 15:06:56 Essential hypertension 26208245 I10 Pure hypercholesterolemia 876051900 E78.00 Type 2 timmy betes mellitus without complication 917033623 E11.9 [id number] Hal Beal MD [facility] Internal Med [facility] [place] [address] [address] 01/29/2024 14:26:15 01/29/2024 15:14:53 Essential hypertension 83405660 I10 Pure hypercholesterolemia 103677175 E78.00 Type 2 timmy betes mellitus without complication 239677303 E11.9 Gout 69853687 M10.9 [id number] Hal Beal MD [facility] Internal Med [facility] [place] [address] [address] 08/12/2024 14:30:16 08/12/2024 15:21:03 Essential hypertension 37990973 I10 Pure hypercholesterolemia 186707239 E78.00 Type 2 timmy betes mellitus without complication 703143347 E11.9 Obesity 099919956 E66.9 Gout 20087775 M10.9 [id number] Hal Beal MD [facility] Internal Med [facility] [place] [address] [address] 02/10/2025 14:22:22 02/10/2025 15:16:35 Essential hypertension 45289658 I10 Pure hypercholesterolemia 525517024 E78.00 Type 2 timmy betes mellitus without complication 074965377 E11.9 Obesity 613519230 E66.9 Gout 45131870 M10.9 Health Concerns Section Related Observation LastModified by Organization Detai ls LastModified Time None Recorded Concern Status LastModified by Organization Details LastModified Time None Recorded Advance Directives Directive N: Payers Insurance Date Sequence Insurance Name Policy Number Policy Rooney Covered Member ID Rooney Member ID Guarantor Name 02/10/2025 1 [place] Di Perdomo [id number] Di Perdomo 02/10/2025 1 [place] [id number] Di Canseco Perdomo [id number] Di Perdomo 02/10/2025 1 [employer] (MEDICARE REPLACEMENT/ ADVANTAGE - PPO) [id number] Di Canseco Conor [id number] Di Ivey Conor Notes Date Note Type Note Provider Name and Address Organization Details Recorded Time 3 text/html Patient Name: Di PerdomoDate Of Service: Saturday ( 02.06.2023 ): 1950 Age: 72 There has been approximately a 5 lb weight loss since 08/08/2022. This represents approximately a 2.6% change in weight. Weight change attributable to lifestyle changes. Vital Signs:Blood Pressure: Sitting Rt. Arm 130/80Pulse: Sitting 60 /min and RegularRespirations: 12Height 63.5 in or 1.6 mWeight 190 lb or 86.2 kgBMI 33.1Temperature: 96.8 F or 36.0 CPulse Oximetry: 97 % at rest on no oxygen Chief Complaint: Addressed in HPI Problems or conditions discussed in the HPI were the only ones reviewed during the encounter.Only social and family history addressed in the HPI were reviewed during this encounter. Attendant(s): Constitutional and Systemic Symptoms: none Medication Reconciliation: from medication list. History of Present Illness #1. Essential Hypertension: Stage: Stage I Interval Neurological Complaints no headaches. No shortness of breath, orthopnea or cardiovascular symptoms. No other symptoms related to end organ damage. Pressure has been under excellent control. Currently normal. No other end organ symptoms or findings. Therapy reviewed regarding management of hypertension and includes salt restriction and Lisinopril and Toprol Xl. #2. Type II Hypercholesterolaemia: Currently taking medication and tolerating well. No interval complaints of any muscle pain or arthralgia. No significant liver changes with medications. Last lipid panel: fair control. Therapy reviewed regarding treatment of cholesterol management and include diet and Lipitor. #3. Type II Diabetes: Has had no polyuria polyphagia or polydipsia. Has had no hypoglycemic like responses. No new history of any numbness, tingling, weakness or visual problems. No nausea, anorexia or other constitutional symptoms. There has been no foot problems or non healing lesions. [facility] Calculated MB mg%. Average blood sugars 100-115 mg%. Checking sugars : not at all Medication Types Include: Metformin Secondary complications include none. Macro-vascular complications include none. Therapy reviewed regarding diabetic management and include Glucophage Compliance: good Renal Protection: KENA inhibitors Lipid management: statins Urinary microalbumin: A1 . Ophthalmological: has seen eye doctor within the last year #4. Hx of obesity. Currently mildly obese. Has tried numerous dietary support and supplements with no benefit. Instructed on the health consequences of the obese status particularly cancer diabetes and heart disease. Potential candidate for bariatric surgery: No. Wishes to be evaluated by Dietary: No and was offered to be evaluated by dietary.Medication List Reviewed and Reconciled 3/29/2023Lisinopril 20 MG (TABLET - ORAL) One DailyLipitor 20 MG (TABLET - ORAL) One DailyToprol Xl 100 MG One DailyGlucophage 1 GM (TABLET - ORAL) One Twice DailyADRs List Reviewed 02/06/2023enicillin RashKeflex RashBiaxin HallucinationsCodeine NauseaLevaquin Rash, VomitingAvelox Nausea, RashHydrochlorothiazide ItchingVaccination and Bsifgpczwtxw9953-47 Covid Booster Uineqv4748-64 Lxfsdvkkm5120-59 Covid Booster Rmcaqbc9888-32 Covid Ukyvhj6656-16 Covid Mtzkspp1073-09 Pneumovax 581103-89 Prevnar 13Surgical HistoryVentral Hernia, C-SectionPreventative Testing Confirmed by Our Udonmfi1008/10/2022 ALBUMIN 4.4 G/DL08/10/2022 MICRO ALBUMIN 22.5 UG/ML08/10/2022 HAIC 7.3 % H006/19/2021 MAMMOGRAM DEXA SCAN01/27/2020 HAIC07/15/2014 COLONOSCOPY (10 YEARS) 07/15/2024Social HistorySOCIAL HISTORY:Marital Status: MarriedDoes not smoke cigarettes. Drinking Hx: 18 oz cans ofsoft drinks per day.Exercise: InfrequentlySexual Hx: Sexually ActiveOccupation: Office WorkerFamily HistoryFAMILY HISTORY:Mother 81 years old HTN and CVAFather 81 years old CA lung2 Brothers both with CAD and CABG the other from DM, PVD, and CAD2 Sisters one living with renal cell cancer the other DM and CRF Hal Beal MD [address] [facility], [facility] [place] [address], [place], [address], [facility] [employer] 02/06/2023 15:45:38 3 text/html Patient Name: Di Walker Of Service: Saturday ( 07.31.2023 ): 1950 Age: 72 Vital Signs:Blood Pressure: Sitting Rt. Arm 124/82Pulse: Sitting 65 /min and RegularRespirations: 12Height 63.5 in or 1.6 mWeight 190 lb or 86.2 kgBMI 33.1Temperature: 97 F or 36.1 CPulse Oximetry: 95 % at rest on no oxygen Chief Complaint: Addressed in HPI Problems or conditions discussed in the HPI were the only ones reviewed during the encounter.Only social and family history addressed in the HPI were reviewed during this encounter. Attendant(s): NoneConstitutional and Systemic Symptoms: none Medication Reconciliation: from medication list. History of Present Illness #1. Essential Hypertension: Stage: Stage I Interval Neurological Complaints no headaches, dizziness, weakness, visual changes, ataxia, aphasia and apraxia. No shortness of breath, orthopnea or cardiovascular symptoms. No other symptoms related to end organ damage. Pressure has been under excellent control. Currently normal. No other end organ symptoms or findings. Therapy reviewed regarding management of hypertension and includes salt restriction and Lisinopril and Toprol Xl. #2. Type II Hypercholesterolaemia: Currently stopped medication as instructed by physician. No interval complaints of any muscle pain or arthralgia. No significant liver changes with medications. Last lipid panel: fair control. Therapy reviewed regarding treatment of cholesterol management and include diet and Lipitor. #3. Type II Diabetes: Has had no polyuria polyphagia or polydipsia. Has had no hypoglycemic like responses. No new history of any numbness, tingling, weakness or visual problems. No nausea, anorexia or other constitutional symptoms. There has been no foot problems or non healing lesions. [facility]: 7.3 Calculated MB mg%. Average blood sugars 116-125 mg%. Checking sugars : several times a week Medication Types Include: Metformin Secondary complications include none. Macro-vascular complications include none. Therapy reviewed regarding diabetic management and include Glucophage Compliance: good Renal Protection: KENA inhibitors Lipid management: statins Urinary microalbumin: A1 . Ophthalmological: has seen eye doctor within the last year TEST RESULT RANGE UNITSCBC WITH DIFFERENTIAL/PLATELET Date: 07/24/2023WBC 6.6 3.4-10.8 X10E3/ULHEMOGLOBIN 12.7 11.1-15.9 G/DLHEMATOCRIT 37.8 34.0-46.6 %PLATELETS 247 150-450 X10E3/ULHEMOGLOBIN A1C Date: 07/24/2023HEMOGLOBIN A1C 7.3 4.8-5.6 %Medication List Reviewed and Reconciled 07/31/2023Lisinopril 20 MG (TABLET - ORAL) Twice DailyLipitor 20 MG (TABLET - ORAL) One DailyToprol Xl 100 MG One DailyGlucophage 1 GM (TABLET - ORAL) One Twice DailyADRs List Reviewed 07/31/2023enicillin RashKeflex RashBiaxin HallucinationsCodeine NauseaLevaquin Rash, VomitingAvelox Nausea, RashHydrochlorothiazide ItchingVaccination and Soulpsxnitrd9422-76 Covid Booster Maguci1270-80 Qznkoxdes5072-33 Covid Booster Izjucnj7466-53 Covid Emjrzy2288-17 Covid Vpsmxox9795-78 Pneumovax 464050-07 Prevnar 13Surgical HistoryVentral Hernia, C-SectionPreventative Testing Confirmed by Our Piqfavj5507/24/2023 ALBUMIN 3.8 G/DL07/24/2023 MICRO ALBUMIN <3.0 UG/ML07/24/2023 HAIC 7.3 % H006/19/2021 MAMMOGRAM DEXA SCAN01/27/2020 HAIC07/15/2014 COLONOSCOPY (10 YEARS) 07/15/2024Social HistorySOCIAL HISTORY:Marital Status: MarriedDoes not smoke cigarettes. Drinking Hx: 18 oz cans ofsoft drinks per day.Exercise: InfrequentlySexual Hx: Sexually ActiveOccupation: Office WorkerFamily HistoryFAMILY HISTORY:Mother 81 years old HTN and CVAFather 81 years old CA lung2 Brothers both with CAD and CABG the other from DM, PVD, and CAD2 Sisters one living with renal cell cancer the other DM and CRF Hal Beal MD [address] [facility], [facility] [place] [address], [place], [address], [facility] 07/31/2023 15:03:42 4 text/html Patient Name: Di Walker Of Service: Saturday ( 01.29.2024 ): 1950 Age: 73 There has been approximately a 9 lb weight loss since 07/31/2023. This represents approximately a 4.7% change in weight. Weight change attributable to lifestyle changes. Vital Signs:Blood Pressure: Sitting Rt. Arm 138/80Pulse: Sitting 62 /min and RegularRespiratory Rate: 12Height 63.5 in or 1.6 mWeight 181 lb or 82.1 kgBMI 31.6Temperature: 97 F or 36.[address] [facility] HAIC: 7.3 Calculated MB mg%Pulse Oximetry: 97 % at rest on no oxygen Chief Complaint: Addressed in HPI Problems or conditions discussed in the HPI were the only ones reviewed during the encounter.Only social and family history addressed in the HPI were reviewed during this encounter. Attendant(s): NoneConstitutional and Systemic Symptoms:none Medication Reconciliation: from medication list. History of Present Illness #1. Essential Hypertension: Stage: Stage I Interval Neurological Complaints no headaches. No shortness of breath, orthopnea or cardiovascular symptoms. No other symptoms related to end organ damage. Pressure has been under fair control. Currently normal. No other end organ symptoms or findings. Therapy reviewed regarding management of hypertension and includes Medication. #2. Type II Hypercholesterolaemia: Currently taking medication and tolerating well. No interval complaints of any muscle pain or arthralgia. No significant liver changes with medications. Last lipid panel: excellent control. Therapy reviewed regarding treatment of cholesterol management and include diet and Medication. #3. Type II Diabetes: Has had no polyuria polyphagia or polydipsia. Has had no hypoglycemic like responses. No new history of any numbness, tingling, weakness or visual problems. No nausea, anorexia or other constitutional symptoms. There has been no foot problems or non healing lesions. The last HA[facility] was [facility] HAIC: 7.3 Calculated MB mg%. Average blood sugars 100-115 mg%. Checking sugars : several times a week Medication Types Include: Metformin Secondary complications include none. Macro-vascular complications include none. Therapy reviewed regarding diabetic management and include Glucophage Compliance: good Renal Protection: KENA inhibitors Lipid management: statins Urinary microalbumin: A1 . Ophthalmological: has seen eye doctor within the last year #4. Hx of obesity. Currently Class 1 Obesity BMI 30-34.99. Has tried numerous dietary support and supplements with no benefit. Instructed on the health consequences of the obese status particularly cancer - diabetes and heart disease. Discussed new modalities of weight loss including GLP-1 medications that are used to treat diabetes. Potential candidate for bariatric surgery: No. Wishes to be evaluated by Dietary: No and was offered to be evaluated and instructed by supervisor home economics on weight loss diet.#5. Gout stable will start on some allopurinol Active Medication ListLisinopril 20 MG (TABLET - ORAL) Twice DailyLipitor 20 MG (TABLET - ORAL) One DailyToprol Xl 100 MG One DailyNaproxen 500 MG TABLET One Twice A DayAllopurinol 300 MG TABLET One DailyGlucophage 1 GM (TABLET - ORAL) One Twice Daily Adverse Drug Reactions ReviewedPenicillin RashKeflex RashBiaxin HallucinationsCodeine NauseaLevaquin Rash, VomitingAvelox Nausea, RashHydrochlorothiazide Itching Vaccination and Ezcsuarkxplb6156-29 Covid Booster Hbhaoo3102-19 Dnujymwdm3371-39 Covid Hnoaxr6139-42 Iktflpvdd0141-50 Prevnar 13 Gc Surgical Kzlejzy1455-93 Ventral Xcyjue2396-66 Preventative Yvdazvb2408/07/2023 MAMMOGRAM ALBUMIN 3.8 G/DL N007/24/2023 MICRO ALBUMIN <3.0 UG/ML N007/24/2023 HAIC 7.3 % H111/27/2019 DEXA SCAN07/15/2014 COLONOSCOPY (10 YEARS) 07/15/2024 Social HistorySOCIAL HISTORY:Marital Status: MarriedDoes not smoke cigarettes. Drinking Hx: 18 oz cans ofsoft drinks per day.Exercise: InfrequentlySexual Hx: Sexually ActiveOccupation: Industrial Automation Specialist Family HistoryFAMILY HISTORY:Mother 81 years old HTN and CVAFather 81 years old CA lung2 Brothers both with CAD and CABG the other from DM, PVD, and CAD2 Sisters one living with renal cell cancer the other DM and CRF TEST RESULT RANGE UNITSLIPID PANEL Date: 07/24/2023HOLESTEROL, TOTAL 153 100-199 MG/DLTRIGLYCERIDES 213 0-149 MG/DLHDL CHOLESTEROL 41 >39 MG/DLLDL CHOL CALC ([facility]) 77 0-99 MG/DLHEMOGLOBIN A1C Date: 07/24/2023HEMOGLOBIN A1C 7.3 4.8-5.6 % Hal Beal MD [address] [facility], [address], [place], [address], [facility] [address] 01/29/2024 14:53:41 4 text/html Patient Name: Di Walker Of Service: Saturday ( 08.12.2024 ): 1950 Age: 73 There has been approximately a 3 lb weight gain since 01/29/2024. This represents approximately a 1.7% change in weight. Weight change attributable to lifestyle changes. Vital Signs:Blood Pressure: Sitting Rt. Arm 136/90Pulse: Sitting 60 /min and RegularRespiratory Rate: 16Height 63.5 in or 1.6 mWeight 184 lb or 83.5 kgBMI 32.1Temperature: 97 F or 36.1 CDCDC HAIC: 6.7 Calculated MB mg%Pulse Oximetry: 97 % at rest on no oxygen Chief Complaint: Addressed in HPI Problems or conditions discussed in the HPI were the only ones reviewed during the encounter.Only social and family history addressed in the HPI were reviewed during this encounter. Attendant(s): NoneConstitutional and Systemic Symptoms:none Medication Reconciliation: from medication list. History of Present Illness #1. Essential Hypertension: Stage: Stage I Interval Neurological Complaints no headaches. No shortness of breath, orthopnea or cardiovascular symptoms. No other symptoms related to end organ damage. Pressure has been under excellent control. Currently normal. No other end organ symptoms or findings. Therapy reviewed regarding management of hypertension and includes salt restriction and Medication. #2. Type II Hypercholesterolaemia: Currently taking medication and tolerating well. No interval complaints of any muscle pain or arthralgia. No significant liver changes with medications. Last lipid panel: fair control. Therapy reviewed regarding treatment of cholesterol management and include diet and Lipitor. #3. Type II Diabetes: Has had no polyuria polyphagia or polydipsia. Has had no hypoglycemic like responses. No new history of any numbness, tingling, weakness or visual problems. No nausea, anorexia or other constitutional symptoms. There has been no foot problems or non healing lesions. [facility] Calculated MB mg%. CGM: No. Average blood sugars 116-125 mg%. Checking sugars : several times a week. Medication Types Include: Metformin Secondary complications include none. Macro-vascular complications include none. Therapy reviewed regarding diabetic management and include Glucophage Compliance: good Renal Protection: ARBs Lipid management: statins Urinary microalbumin: A1 . Ophthalmological: has seen eye doctor within the last year. Control: Good Control 6.2 - 7.0#4. History of gouty arthritis clinically stable. No interval complaints of any recent exacerbations. Currently taking the allopurinol and doing well #5. Hx of obesity. Currently Class 1 Obesity BMI 30-34.99. Has tried numerous dietary support and supplements with no benefit. Instructed on the health consequences of the obese status particularly cancer - diabetes and heart disease. Discussed other modalities of weight loss no . Potential candidate for bariatric surgery: No. Wishes to be evaluated by Dietary: No and was offered to be evaluated and instructed by supervisor home economics on weight loss diet. Active Medication ListLosartan Potassium 100 MG TABLET One DailyLipitor 20 MG (TABLET - ORAL) One DailyToprol Xl 100 MG One DailyNaproxen 500 MG TABLET One Twice A DayAllopurinol 300 MG TABLET One DailyGlucophage 1 GM (TABLET - ORAL) One Twice Daily Adverse Drug Reactions ReviewedPenicillin RashKeflex RashBiaxin HallucinationsCodeine NauseaLevaquin Rash, VomitingAvelox Nausea, RashHydrochlorothiazide Itching Vaccination and Immunization(X) 2023- INFLUENZA( ) 2014- PREVNAR 13 GC(X) 2017- PNEUMOVAX PREVNAR 20 Needed( ) 2020- COVID PFIZER( ) 2023- COVID BOOSTER PFIZER Surgical [id number] Ventral [id number] Preventative Testing( ) 02/05/2024 Albumin 4.1 G/DL( ) 02/05/2024 Cologuard 02/04/2027( ) 02/05/2024 HAIC 6.7 % H( ) 08/07/2023 Mammogram 08/07/2025( ) 07/24/2023 Micro Albumin <3.0 UG/ML N(X) 09/27/2020 DEXA Scan 09/27/2022 Social HistorySOCIAL HISTORY:Marital Status: MarriedDoes not smoke cigarettes. Drinking Hx: 18 oz cans ofsoft drinks per day.Exercise: InfrequentlySexual Hx: Sexually ActiveOccupation: Industrial Automation Specialist Family HistoryFAMILY HISTORY:Mother 81 years old HTN and CVAFather 81 years old CA lung2 Brothers both with CAD and CABG the other from DM, PVD, and CAD2 Sisters one living with renal cell cancer the other DM and CRF Hal Beal MD [address] [facility], [facility], [place], [address], [place] [facility] Circle 08/12/2024 14:55:29 5 text/html Patient Name: Di Walker Of Service: Saturday ( 02.10.2025 ): 1950 Age: 74 There has been approximately a 4 lb weight loss since 08/12/2024. This represents approximately a 2.2% change in weight. Weight change attributable to lifestyle changes. Vital Signs:Blood Pressure: Sitting Rt. Arm 122/74Pulse: Sitting 66 /min and RegularRespiratory Rate: 16Height 63.5 in or 1.6 mWeight 180 lb or 81.6 kgBMI 31.4Temperature: 97 F or 36.1 CPulse Oximetry: 97 % at rest on no oxygen Chief Complaint: Addressed in HPI Problems or conditions discussed in the HPI were the only ones reviewed during the encounter.Only social and family history addressed in the HPI were reviewed during this encounter. Attendant(s): NoneConstitutional and Systemic Symptoms:none Medication Reconciliation: from medication list. History of Present Illness #1. Essential Hypertension: Stage: Stage I Interval Neurological Complaints no headaches, dizziness, weakness, visual changes, ataxia, aphasia and apraxia. No shortness of breath, orthopnea or cardiovascular symptoms. No other symptoms related to end organ damage. Pressure has been under excellent control. Currently normal. No other end organ symptoms or findings. Therapy reviewed regarding management of hypertension and includes salt restriction and Losartan Potassium and Toprol Xl. #2. Type II Hypercholesterolaemia: Currently taking medication and tolerating well. No interval complaints of any muscle pain or arthralgia. No significant liver changes with medications. Last lipid panel: excellent control. Therapy reviewed regarding treatment of cholesterol management and include diet and Lipitor. #3. Type II Diabetes: Has had no polyuria polyphagia or polydipsia. Has had no hypoglycemic like responses. No new history of any numbness, tingling, weakness or visual problems. No nausea, anorexia or other constitutional symptoms. There has been no foot problems or non healing lesions. The last HAIC was [facility] HAIC: 7.0 Calculated MB mg%. CGM: No. Average blood sugars 100-115 mg%. Checking sugars : several times a week. Medication Types Include: Metformin and Sulfonylureas Secondary complications include none. Macro-vascular complications include none. Therapy reviewed regarding diabetic management and include Glimepiride and Glucophage Compliance: good Renal Protection: ARBs Lipid management: statins Urinary microalbumin: A1 . Ophthalmological: has seen eye doctor within the last year. Control: Good Control 6.2 - 7.0 #4. Gouty Arthritis: History of gouty arthritis. Has had no attacks since last examination. Currently taking allopurinol. No interval complaints of any new joint involvement. #5. Hx of obesity. Currently Class 1 Obesity BMI 30-34.99. Has tried numerous dietary support and supplements with no benefit. Instructed on the health consequences of the obese status particularly cancer - diabetes and heart disease. Discussed other modalities of weight loss GLP-1 medications that are used to treat diabetes . Potential candidate for bariatric surgery: No. Wishes to be evaluated by Dietary: No and was offered to be evaluated and instructed by supervisor home economics on weight loss diet. Active Medication ListLosartan Potassium 100 MG TABLET One DailyLipitor 40 MG TABLET, FILM COATED One DailyToprol Xl 100 MG One DailyNaproxen 500 MG TABLET One Twice A DayAllopurinol 300 MG TABLET One DailyGlucophage 1 GM (TABLET - ORAL) One Twice DailyGlimepiride 2 MG TABLET One DailyChlorthalidone 25 MG TABLET One Daily Adverse Drug Reactions ReviewedPenicillin RashKeflex RashBiaxin HallucinationsCodeine NauseaLevaquin Rash, VomitingAvelox Nausea, RashHydrochlorothiazide Itching Vaccination and Immunization( ) 2024-06 INFLUENZA( ) 2014-12 PREVNAR 13 GC(X) 2018-06 PNEUMOVAX PREVNAR 20 Needed( ) 2020- COVID PFIZER( ) 2024-06 COVID BOOSTER PFIZER Surgical [id number] Ventral [id number] Preventative Testing( ) 12/23/2024 Optometry( ) 08/19/2024 Mammogram 08/19/2026( ) 08/19/2024 DEXA Scan 08/19/2026( ) 08/13/2024 Albumin 4.1 G/DL( ) 08/13/2024 Micro Albumin 12.0 UG/ML( ) 08/13/2024 HAIC 7.0 % H( ) 02/05/2024 Cologuard 02/04/2027 Social HistorySOCIAL HISTORY:Marital Status: MarriedDoes not smoke cigarettes. Drinking Hx: 18 oz cans ofsoft drinks per day.Exercise: InfrequentlySexual Hx: Sexually ActiveOccupation: Industrial Automation Specialist Family HistoryFAMILY HISTORY:Mother 81 years old HTN and CVAFather 81 years old CA lung2 Brothers both with CAD and CABG the other from DM, PVD, and CAD2 Sisters one living with renal cell cancer the other DM and CRF TEST RESULT RANGE UNITSCBC WITH DIFFERENTIAL/PLATELET Date: 08/13/2024WBC 6.1 3.4-10.8 X10E3/ULHEMOGLOBIN 13.1 11.1-15.9 G/DLHEMATOCRIT 40.5 34.0-46.6 %PLATELETS 244 150-450 X10E3/ULCOMP. METABOLIC PANEL (14) Date: 08/13/2024SODIUM 142 134-144 MMOL/LPOTASSIUM 4.4 3.5-5.2 MMOL/LGLUCOSE 144 70-99 MG/DLBUN 16 8-27 MG/DLCREATININE 1.08 0.57-1.00 MG/DLEGFR 54 >59 ML/MIN/1.73BILIRUBIN, TOTAL 0.4 0.0-1.2 MG/DLALKALINE PHOSPHATASE 88 44-121 IU/LAST (SGOT) 15 0-40 IU/LALT (SGPT) 14 0-32 IU/LHEMOGLOBIN A1C Date: 08/13/2024HEMOGLOBIN A1C 7.0 4.8-5.6 %LIPID PANEL Date: 08/13/2024HOLESTEROL, TOTAL 174 100-199 MG/DLTRIGLYCERIDES 216 0-149 MG/DLHDL CHOLESTEROL 46 >39 MG/DLLDL CHOL CALC ([facility]) 91 0-99 MG/DL Hal Beal MD [address] [facility], [facility], [address], [place], [address], [facility] [employer] 02/10/2025 15:08:33 OBGyn Episode No OBEpisode recorded.
== END 2025-05-26 08:19 | disposition home or self-care (01) ==
PROVIDERS: PCP Internal Medicine; Visit Provider Internal Medicine Nephrology
DX: N28.1 Cyst of kidney, acquired (principal); N28.89 Other specified disorders of kidney and ureter; I12.9 Hypertensive chronic kidney disease with stage 1 through stage 4 chronic kidney disease, or unspecified chronic kidney disease; E11.22 Type 2 diabetes mellitus with diabetic chronic kidney disease; N18.31 Chronic kidney disease, stage 3a
CPT/HCPCS: 76775